=== PATIENT | female | born 1990 | race African-American/Black ===

== ENCOUNTER 2020-10-04 21:54 | Emergency (ER) | payer MEDICAID, OTHER ==
[~2020-10-04] VITALS: Ht 165.1 cm; Wt 119.3 kg
[2020-10-04 22:21] LABS: MICROSCOPIC AUTO
--- NOTE | 2020-10-04 22:57 | NUR ---
Patient comes in with complaints of left lower abdominal pain. States that it started last night worse tonight. Decline anything for pain, resting comforable at this time.
[2020-10-04 23:13] LABS: BASOPHILS % (AUTO) 0 % (0-1); EOSINOPHILS % (AUTO) 1 % (1-7); LYMPHOCYTES % (AUTO) 42 % (22-44); MEAN CORPUSCULAR HEMOGLOBIN 30.3 pg (27.0-34.8); MEAN CORPUSCULAR HGB CONC 33.5 g/dL (32.4-35.8); MEAN PLATELET VOLUME 7.6 fL (7.4-10.4); MONOCYTES % (AUTO) 9 % (2-9); NEUTROPHILS % (AUTO) 48 % (42-75); PLATELET COUNT 305 x10^3/uL (130-400); RED BLOOD COUNT 4.26 x10^6/uL (3.82-5.3); RED CELL DISTRIBUTION WIDTH 13.9 % (9.6-15.2)
[2020-10-04 23:16] LABS: MD NO
[2020-10-04 23:22] LABS: ALBUMIN 3.4 g/dL (3.4-5.0); ANION GAP 5 mmol/L (5-15); CALCIUM 8.5 mg/dL (8.5-10.1); CHLORIDE 106 mmol/L (98-107)
[2020-10-04 23:29] LABS: ALANINE AMINOTRANSFERASE 58 U/L (12-78); ALKALINE PHOSPHATASE 69 U/L (45-117); BILIRUBIN,TOTAL 0.3 mg/dL (0.2-1.0); CREATININE 0.86 mg/dL (0.55-1.02); TOTAL PROTEIN 7.9 g/dL (6.4-8.2)
[2020-10-04 23:42] VITALS: BP 110/64
== END 2020-10-04 23:44 | disposition home or self-care (01) ==
LOC: ED 23:23
DX: N83.291 Other ovarian cyst, right side (principal); R10.32 Left lower quadrant pain; R11.0 Nausea; R51.9 Headache, unspecified
CPT/HCPCS: 36415; 76830; 80053; 81001; 83690; 84703; 85025; 87086; 99284